=== PATIENT | male | born 1990 | race Caucasian/White ===

== ENCOUNTER 2016-07-13 15:14 | Inpatient (IN) | payer OTHER ==
--- NOTE | ~2016-07-13 | US115 ---
[facility] A Service of [facility] & [facility] RADIOLOGY TEXT RESULTS PATIENT: CM AVILES LOCATION: A 229-01 : 90 UNIT #: [id number] AGE: [address]: Cm Osorio MD SEX: M ORDER DR: [id number] [facility] [address] [place], [place] [address] [id number] MR#: [id number] Acc #: [id number] NAME: CM AVILES : 1990 SEX: M STUDY DATE/TIME: 07/13/2016 14:10 [facility] [id number] STUDY DESCRIPTION: US Scrotum and Contents Attending Physician: Cm Osorio M.D. Ordering Physician: Cm Osorio M.D. Primary Care Physician: No Primary Care Physician MEDICAL IMAGING REPORT This report is preliminary unless electronic signature is present EXAM scrotal ultrasound HISTORY Pain, swelling, left testis, 3 days. TECHNIQUE Real-time ultrasonography of scrotal contents performed. Adam-scale, color Doppler, and Doppler pulse-wave interrogation utilized. FINDINGS The right testis shows arterial and venous flow. It measures 2.78 cm x 1.93 cm x 4.35 cm. Normal in contour and echotexture. No testicular mass lesion. Trace fluid, right hemiscrotum. Right epididymal head cyst measuring 0.75 cm x 0.43 cm x 0.60 cm. Small varicocele, medial right hemiscrotum. The left testis measures 2.32 cm x 2.25 cm x 3.85 cm. It is normal in contour and echotexture. Arterial and venous flow noted in the left testis. Small amount of fluid in the left hemiscrotum. This is greater than on the right. The left epididymis is abnormally thickened and heterogeneous in appearance. It is hypervascular. I do not see focal epididymal mass. Appearance most likely represents moderate to marked left epididymitis. Short-interval ultrasound followup after treatment is strongly recommended to confirm resolution of epididymal thickening. IMPRESSION 1. Findings most in keeping with moderate to marked left epididymitis. The left epididymis is diffusely thickened and hyperemic. No focal mass lesion is seen. Followup ultrasound after treatment for epididymitis is strongly recommended to confirm resolution of epididymal thickening. 2. The bilateral testes are normal in size, contour and echotexture. No STS. [facility] A Service of [facility] RADIOLOGY TEXT RESULTS PATIENT: CM AVILES LOCATION: C2A 229-01 : [birth year] UNIT #: [id number] AGE: [address]: Cm Osorio MD SEX: M ORDER DR: testicular mass lesions. Arterial and venous flow in bilateral testes. 3. Small amount of fluid in the bilateral deanne scrota, left greater than right. 4. Small medial right varicocele. 5. Small right epididymal head cyst. Dictated by... Pineda Cisneros M.D. THIS IS AN ELECTRONICALLY VERIFIED REPORT Pindea Cisneros M.D. at 07/14/2016 9:31 PM Scot TD: 07/13/2016 16:28 JOB #: [id number] MEDICAL IMAGING REPORT Page 1 of 1 COPY
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
--- NOTE | ~2016-07-13 | DS ---
Unit #: [id number] #: [id number] Patient: ALEXSANDER AVILES [id number] [address] [address] [id number] I MR#: [id number] NAME: ALEXSANDER AVILES ROOM: 229 Age: 25 Sex: M Admission Date: 07/13/2016 : 1990 Discharge Date: Attending Physician: Alexsander Osorio M.D. Primary Care Physician: No Primary Care Physician DISCHARGE SUMMARY DIAGNOSIS Left epididymitis. HISTORY OF PRESENT ILLNESS Mr. Aviles was admitted to the hospital and treated with left epididymitis. He had a weeks worth of left testicular pain. Evaluation showed epididymitis. He was admitted to the hospital and started on Zosyn. He has improved quickly and a white count is decreased. Urine culture shows no growth. PAST MEDICAL HISTORY Negative. PAST SURGICAL HISTORY Negative. SOCIAL HISTORY Denies smoking. FAMILY HISTORY Noncontributory. ALLERGIES No known drug allergies. PHYSICAL EXAMINATION VITAL SIGNS: Stable. He is afebrile. Bilaterally descended testicles. The left epididymitis and testicle is somewhat enlarged, mildly tender, slightly first, no erythema. DISCHARGE INSTRUCTIONS Patient will be discharged home on pain medication and Augmentin for three weeks. He can return to see us in the office if he gets worse or if the symptoms return. Dictated by... Olivier Saba M.D. KEVIN/ts Unit #: [id number] #: [id number] Patient: ALEXSANDER AVILES TD: 07/15/2016 11:18 JOB #: [id number] DISCHARGE SUMMARY Page 1 of 1 X Olivier Saba MD X DISCHARGE SUMMARY
[2016-07-13 13:36] LABS: URINE SOURCE CLEAN CATCH
[2016-07-13 13:41] LABS: URINE BILIRUBIN NEG (NEG); URINE BLOOD TRACE (NEG); URINE COLOR YELLOW; URINE GLUCOSE NEG (NEG); URINE KETONE NEG (NEG); URINE LEUKOCYTE ESTERASE 3+ (NEG); URINE NITRATE NEG (NEG); URINE PH 6.5 (5-8); URINE PROTEIN NEG (NEG); URINE SPECIFIC GRAVITY 1.019 (1.003-1.035); URINE UROBILINOGEN 0.2 MG/DL (NEG)
[2016-07-13 13:42] LABS: URINE BACTERIA AUWI NEG (NEGATIVE); URINE SQUAMOUS EPITHELIAL CELL NONE SEEN /[HPF]; UWBCS1 AUWI INNUM (0-5)
[2016-07-13 13:55] LABS: URINE APPEARANCE CLEAR
[2016-07-13 13:59] LABS: BASOPHIL# 0.1 X10e3 (0-0.3); BASOPHIL% 0.7 % (0-2.5); DIFF IND YES; EOSINOPHIL# 0.1 X10e3 (0-0.7); EOSINOPHIL% 0.3 % (0.0-7.0); HEMATOCRIT 40.7 % (38.0-50.0); HEMOGLOBIN 13.2 gm/dL (13.0-16.0); LYMPHOCYTE# 1.2 X10e3 (1.0-3.5); LYMPHOCYTE% 6.6 % (17.0-45.0); MEAN CELL VOLUME 92.3 FL (83-96); MEAN CORPUSCULAR HEMOGLOBIN 29.9 PG (28-34); MEAN CORPUSCULAR HGB CONC 32.4 g/dL (30-36); MONOCYTE# 1.3 X10e3 (0-1.0); MONOCYTE% 7.1 % (3.0-12.0); NEUTROPHIL# 15.4 X10e3 (1.5-7.1); NEUTROPHIL% 85.3 % (40-75); PLATELET COUNT 420 X10e3 (140-420); RED BLOOD COUNT 4.41 X10e (3.90-5.60); RED CELL DISTRIBUTION WIDTH 12.6 % (11.0-15.5); WHITE BLOOD COUNT 18.1 X10e3 (4.0-10.5)
[2016-07-13 14:17] LABS: PLATELET ESTIMATE INCREASED (NORMAL)
[2016-07-13 14:36] LABS: BUN/CREATININE RATIO 8.88; CALCIUM SERUM 8.9 mg/dL (8.4-10.2); CREATININE SERUM 0.9 mg/dL (0.6-1.4); GLOM FILT RATE Estimated 118.3 mL/min (>60); POTASSIUM 4.2 mmol/L (3.5-5.1)
[2016-07-13] MEDS ORDERED: NO MEDICATIONS (15:31)
[2016-07-14 06:12] LABS: BASOPHIL# 0.1 X10e3 (0-0.3); BASOPHIL% 0.5 % (0-2.5); EOSINOPHIL# 0.3 X10e3 (0-0.7); EOSINOPHIL% 2.7 % (0.0-7.0); HEMATOCRIT 39.5 % (38.0-50.0); HEMOGLOBIN 12.5 gm/dL (13.0-16.0); LYMPHOCYTE# 2.2 X10e3 (1.0-3.5); LYMPHOCYTE% 17.8 % (17.0-45.0); MEAN CELL VOLUME 92.6 FL (83-96); MEAN CORPUSCULAR HEMOGLOBIN 29.4 PG (28-34); MEAN CORPUSCULAR HGB CONC 31.8 g/dL (30-36); MEAN PLATELET VOLUME 7.3 FL (6.5-11.5); MONOCYTE# 1.5 X10e3 (0-1.0); MONOCYTE% 12.1 % (3.0-12.0); NEUTROPHIL# 8.1 X10e3 (1.5-7.1); NEUTROPHIL% 66.9 % (40-75); PLATELET COUNT 392 X10e3 (140-420); RED BLOOD COUNT 4.26 X10e (3.90-5.60); RED CELL DISTRIBUTION WIDTH 12.7 % (11.0-15.5); WHITE BLOOD COUNT 12.1 X10e3 (4.0-10.5)
[2016-07-14 06:17] LABS: DIFF IND NO
[2016-07-14 07:13] LABS: CALCIUM SERUM 8.9 mg/dL (8.4-10.2); GLOM FILT RATE Estimated 104.2 mL/min (>60); POTASSIUM 4.5 mmol/L (3.5-5.1)
[2016-07-15 05:35] LABS: HEMATOCRIT 38.2 % (38.0-50.0); HEMOGLOBIN 12.3 gm/dL (13.0-16.0); MEAN CELL VOLUME 92.6 FL (83-96); MEAN CORPUSCULAR HEMOGLOBIN 29.8 PG (28-34); MEAN CORPUSCULAR HGB CONC 32.2 g/dL (30-36); MEAN PLATELET VOLUME 7.1 FL (6.5-11.5); RED BLOOD COUNT 4.13 X10e (3.90-5.60); RED CELL DISTRIBUTION WIDTH 12.4 % (11.0-15.5)
[2016-07-15] MEDS ORDERED: HYDROCODON-ACE1 EAC9 PO (09:49)
[2016-07-15] MEDS ORDERED: AUGMENTIN PO (09:50)
== END 2016-07-15 12:04 | disposition home or self-care (01) | DRG 728 ==
LOC: CED 15:14 → CEDOF 15:26 → C2A 17:22
PROVIDERS: Emergency Medicine; Urology
DX: N45.1 Epididymitis (principal); F17.210 Nicotine dependence, cigarettes, uncomplicated
CPT/HCPCS: 36415; 76870; 80048; 81003; 85025; 85027; 87086; 93976; 96361; 96374; 99285; J1650; J1885; J2270; J2543